=== PATIENT | female | born 1965 | race Caucasian/White ===

== ENCOUNTER 2017-04-30 22:54 | Inpatient (IN) | payer OTHER ==
[~2017-04-30] VITALS: Ht 165.1 cm; Wt 58.1 kg
[~2017-04-30 22:54] MED LIST: FOLI1TAB16; LORA1TAB; METH2.5T14; OMEP20CA10; TIZANIDINE 4 MG; ZOLP10TA6
--- NOTE | 2017-04-30 23:15 | NUR ---
BIBSELF, AMBULATORY TO ER BED 2 C/O LEFT WRIST PAIN S/P WITNESSED SLIP AND FALL ON WATER. ABRASION OF LEFT FOREHEAD -KO. PT AOX3 RR EVEN AND UNLABORED. NO SOB NOTED. NAD NOTED. NO NVD AT THIS TIME. PT GOWNED WAITING FOR MD SALGADO.
--- NOTE | 2017-04-30 23:23 | NUR ---
XRAY AT BEDSIDE
[2017-04-30] MEDS ORDERED: HYDROCODONE/APAP 10/325MG 1 EA TABLET PO ONE (23:30)
[2017-04-30] MEDS ORDERED: HYDROCODONE/APAP 10/325MG 1 EA TABLET ONE (23:32)
--- NOTE | 2017-05-01 00:03 | NUR ---
DR. JAMES AT BEDSIDE SPEAKING TO PT REGARDING RESULTS
--- NOTE | 2017-05-01 00:16 | NUR ---
IV ACCESSED TO [facility] 20. BLOOD SAMPLE SENT TO LAB
[2017-05-01 00:23] LABS: BASOPHILS % (AUTO) 0.5 % (0.0-2.0); EOSINOPHILS # (AUTO) 0.1 /CMM (0.0-0.7); EOSINOPHILS % (AUTO) 1.5 % (0.0-6.0); HEMATOCRIT 42 % (33-45); HEMOGLOBIN 14.2 g/dL (11.5-14.8); LYMPHOCYTES % (AUTO) 13.4 % (20.0-44.0); MEAN CORPUSCULAR HEMOGLOBIN 32 PG (26.0-33.0); MEAN CORPUSCULAR HGB CONC 34 g/dl (31.0-36.0); MEAN CORPUSCULAR VOLUME 96 fL (82-100); MONOCYTES # (AUTO) 0.6 /CMM (0.1-1.30); MONOCYTES % (AUTO) 8.1 % (2.0-12.0); NEUTROPHILS # (AUTO) 5.9 /CMM (1.8-8.9); NEUTROPHILS % (AUTO) 76.5 % (43.0-81.0); PLATELET COUNT (AUTO) 201 /CMM (150-450); RDW COEFFICIENT OF VARIATION 12.8 (11.5-15.0); RED BLOOD CELL COUNT(AUTO) 4.39 MIL/uL (4.0-5.2); WHITE BLOOD COUNT (AUTO) 7.7 K/uL (4.3-11.0)
[2017-05-01 00:35] LABS: CREATININE 1.2 mg/dL (0.6-1.3); INR 0.95 (0.87-1.13); PROTHROMBIN TIME 10.1 SECS (9.5-12.7)
--- NOTE | 2017-05-01 00:44 | NUR ---
REPORT GIVEN TO FLOOR RN FOR CONTINUITY OF CARE
[2017-05-01 01:01] VITALS: BP 128/82
--- NOTE | 2017-05-01 01:01 | NUR ---
RN NOTES RECEIVED NEW ADMISSION FROM ER WITH DX OF FALL. PATIENT IS ALERT AND ORIENTED X4, CALM, NO SOB, NO RESPIRATORY DISTRESS, ON ROOM AIR, SPO2 97%, LUNG SOUNDS ARE CLEAR, ABDOMEN SOFT AND NON-TENDER, DENIES ANY HEADACHE, S/P FALL IN AN AMUSEMENT PARK THIS AFTERNOON, SLID ON WATER AND LANDED ON LEFT SIDE OF BODY, WITH NOTED SCAB ON LEFT TEMPORAL AREA, NO FACIAL AND LEFT ARM BRUISING, LEFT HAND HAS SLIGHT SWELLING. PATIENT NOT IN ANY LUCY BANDAGE OR SLING TO IMMOBILIZE THE LEFT ARM. RECEIVED [facility] ER, PATIENT COMPLAINING OF PAIN OF 8/10 TO LEFT ARM, ABLE TO HOLD CONVERSATION, NOT SEEMED TO BE BOTHERED BY PAIN. ABLE TO AMBULATE TO THE TOILET. ALSO NOTED RASHES TO RIGHT LOWER LEG. PER PATIENT "I HAVE RASHES AT THIS TIME OF YEAR." UNABLE TO TELL CAUSE OF RASH. REFUSED PHOTOS TAKEN. RIGHT AC PERIPHERAL LINE IS PATENT AND FLUSHED. DISCUSSED WITH PATIENT PLAN OF CARE, ORIENTED TO USE OF CALL LIGHT AND ROOM, TOILET. NEEDS ATTENDED, CALL LIGHT WITHIN REACH. SPOUSE AT THE BEDSIDE.
[2017-05-01 02:00] VITALS: BP 128/82
[2017-05-01] MEDS ORDERED: IV D5/0.45 NACL 1,000 ML IV PRN (02:37)
[2017-05-01] MEDS ORDERED: MAG HYDROX/AL HYDROX/SIMETH 30 ML UDC PO PRN (03:00)
[2017-05-01] MEDS ORDERED: ONDANSETRON HCL/PF 4 MG/2 ML VIAL IVP PRN (03:00)
[2017-05-01] MEDS ORDERED: ACETAMINOPHEN 325 MG TABLET PO PRN (03:00)
[2017-05-01] MEDS ORDERED: ZOLPIDEM TARTRATE 5 MG TABLET PO PRN (03:00)
[2017-05-01] MEDS ORDERED: Z GUARD REMEDY 2 OZ OINT TP PRN (03:00)
[2017-05-01] MEDS ORDERED: MAGNESIUM HYDROXIDE 30 ML UDC PO PRN (03:00)
--- NOTE | 2017-05-01 03:15 | NUR ---
RN NOTES PATIENT REPORTED TAKING AMBIEN 10 MG PO AND ATIVAN 1MG PO TOGETHER FROM OWN MEDICATION FROM HOME. COUNSELED PATIENT REGARDING POSSIBLE SIDE EFFECTS OF AMBIEN AND ATIVAN TAKEN TOGETHER. PER PATIENT, BEEN TAKING AMBIEN AND ATIVAN FOR YEARS FOR SEVERE INSOMNIA. EXPLAINED TO PATIENT PAIN MEDICATION WILL BE HELD UNTIL NO ADVERSE SIDE EFFECTS OCCURS. PATIENT VERBALIZED UNDERSTANDING.
[2017-05-01] MEDS ORDERED: MORPHINE SULFATE INJ 2 MG/ML DISP.SYRIN ONE (05:21)
[2017-05-01] MEDS: MORPHINE SULFATE INJ 2 MG/ML DISP.SYRIN IV PRN ×2 (05:23→09:49)
--- NOTE | 2017-05-01 07:25 | NUR ---
RN NOTES PT IS IN BED, SLEEPING COMFORTABLY. PT ON RA, RESPIRATIONS ARE EVEN AND UNLABORED. IV ON RAC INTACT AND PATENT, RUNNING D5 1/2NS AT 75 ML/HR. SAFETY MEASURES ARE IN PLACE, CALL LIGHT IS IN REACH. WILL CONTINUE TO MONITOR.
[2017-05-01] MEDS ORDERED: PANTOPRAZOLE 40 MG TABLET.DR PO SCH (07:30)
[2017-05-01] MEDS ORDERED: ETAN50DI SQ (07:55)
[2017-05-01] MEDS ORDERED: ZOLP10TA2 PO (07:55)
[2017-05-01] MEDS ORDERED: TIZA4TAB4 PO (07:55)
[2017-05-01] MEDS ORDERED: LORA1TAB PO (07:55)
[2017-05-01 08:00] VITALS: BP 113/66
[2017-05-01] MEDS ORDERED: HYDROCODONE/APAP 5/325MG 1 EACH TABLET PO PRN (11:30)
[2017-05-01] MEDS ORDERED: LIDOCAINE 2% 20 ML MDV TP ONE (12:00)
[2017-05-01] MEDS ORDERED: MORPHINE SULFATE INJ 2 MG/ML DISP.SYRIN IV PRN (12:00)
[2017-05-01] MEDS ORDERED: MORPHINE SULFATE INJ 4 MG/ML DISP.SYRIN IV STA (12:26)
--- NOTE | 2017-05-01 12:27 | NUR ---
ms rn notes Dr. Herbert on site doing a procedure at bedside and ordered Morphine IV 4mg IVP x 1 only. All orders carried out and noted. Will continue to monitor accordingly.
[2017-05-01 16:00] VITALS: BP 128/79
[2017-05-01] MEDS ORDERED: HYDR-552 PO (16:42)
--- NOTE | 2017-05-01 16:56 | NUR ---
RN NOTES PT IS DISCHARGED HOME ACCOMPANIED BY SIGNIFICANT OTHER IN STABLE CONDITION. IV AND ID BAND WERE REMOVED. ALL MEDS WERE GIVEN ORDERED. NEW PRESCRIPTION WAS GIVEN. DISCHARGE EDUCATION AND INFORMATION WERE GIVEN. PT STATED SHE WOULD MAKE HER OWN APPOINTMENT TO FOLLOW UP WITH DR. MARTINEZ. BELONGINGS LIST AND DISCHARGE PAPERS WERE SIGNED. MEDICATIONS SENT TO PHARMACY WERE RETURNED.
== END 2017-05-01 16:55 | disposition home or self-care (01) | DRG 563 ==
LOC: ER 22:55 → MED 05-01 01:13
PROVIDERS: ADMIT Internal Medicine; ATTEND Internal Medicine
PROC: 0PSJXZZ Reposition Left Radius, External Approach (ICD-10-PCS; principal; 2017-05-01)
DX: S52.572A Other intraarticular fracture of lower end of left radius, initial encounter for closed fracture (principal); S52.612A Displaced fracture of left ulna styloid process, initial encounter for closed fracture; W01.0XXA Fall on same level from slipping, tripping and stumbling without subsequent striking against object, initial encounter; Y93.9 Activity, unspecified; Y92.009 Unspecified place in unspecified non-institutional (private) residence as the place of occurrence of the external cause
CPT/HCPCS: 36415; 71010-TC; 73100-TC; 73110; 80048-TC; 85025-TC; 85730-TC; 87081-TC; 93307-TC; A4606; J2270; J3490; Z7610